=== PATIENT | female | born 1955 | race Caucasian/White ===

== ENCOUNTER 2018-04-28 16:23 | Inpatient (IN) | payer SELFPAY ==
[~2018-04-28] VITALS: Ht 167.6 cm; Wt 79.0 kg
[~2018-04-28 16:23] MED LIST: CATAFLAM50 MG PO; CYMBALTA60 MG PO; Fioricet 325 MG1 TAB PO; HYDROCODONE BIT1 T11 PO; KLOR-CON 1010 ME1 PO; LASIX20 MG PO; TOPAMAX25 MG PO
[2018-04-28 16:24] VITALS: BP 114/48
[2018-04-28] MEDS ORDERED: LIPITOR20 MG PO (16:31)
[2018-04-28] MEDS ORDERED: NEURONTIN300 MG PO ×2 (16:32)
[2018-04-28] MEDS ORDERED: TRAZODONE50 MG PO (16:33)
[2018-04-28] MEDS ORDERED: MELADOX3 MG PO (16:33)
[2018-04-28 16:51] LABS: BASO % 0.2 % (0.0-1.0); EOS % 0.3 % (1.0-4.0); HEMATOCRIT 38.7 % (37.0-47.0); HEMOGLOBIN 13.2 g/dl (12.0-16.0); LYMPH # 1.3 10*3/uL (1.3-4.4); LYMPH % 12.2 % (27.0-41.0); MEAN CELL VOLUME 98.2 fl (81.0-99.0); MEAN CORPUSCULAR HGB 33.5 pg (27.0-31.0); MEAN CORPUSCULAR HGB CONC 34.1 g/dl (33.0-37.0); MEAN PLATELET VOLUME 9.1 fl (9.6-12.3); MONO # 0.8 10*3/uL (0.1-1.0); MONO % 7.1 % (3.0-9.0); NEUT # 8.6 10*3/uL (2.3-7.9); NEUT % 79.8 % (47.0-73.0); PLATELET COUNT AUTOMATED 185 10*3/uL (130-400); RED BLOOD COUNT 3.94 10*6/uL (4.10-5.10); RED CELL DISTRI WIDTH 12.3 % (0-14.5); WHITE BLOOD COUNT 10.7 10*3/uL (4.8-10.8)
[2018-04-28 17:07] LABS: ALBUMIN 3.4 gm/dl (3.1-4.5); ALKALINE PHOSPHATASE 93 U/L (45-117); BUN 10 mg/dl (7-24); CHLORIDE 106 mmol/L (98-107); LIPASE 50 U/L (73-393); POTASSIUM 2.6 mmol/L (3.5-5.1); SGOT/AST 17 IU/L (3-35); SGPT/ALT 27 U/L (12-78); SODIUM 141 mmol/L (136-145); TOTAL PROTEIN 7.2 gm/dL (6.4-8.2)
[2018-04-28 17:23] VITALS: BP 111/67
[2018-04-28 18:20] VITALS: BP 126/60
[2018-04-28 19:07] LABS: BILIRUBIN NEGATIVE (NEGATIVE); BLOOD 3+ (NEGATIVE); CLARITY SL CLOUDY (CLEAR); COLOR YELLOW (YELLOW); GLUCOSE NEGATIVE (NEGATIVE); KETONE TRACE (NEGATIVE); LEUKO ESTERASE 2+ (NEGATIVE); NITRITE POSITIVE (NEGATIVE); PH 6.5 (5.0-9.0); SPECIFIC GRAVITY 1.015 (1.005-1.030)
[2018-04-28 19:25] VITALS: BP 131/64
[2018-04-28 19:28] LABS: WBC TNTC wbc/hpf (0-5)
[2018-04-28 19:29] LABS: BACTERIA 4+
[2018-04-28 20:12] VITALS: BP 115/80
[2018-04-28 20:20] VITALS: BP 127/71
[2018-04-29] VITALS (7 sets, daily range): BP systolic 105–145; BP diastolic 61–76
[2018-04-29 07:19] LABS: BASO % 0.4 % (0.0-1.0); EOS # 0.2 10*3/uL (0.0-0.4); EOS % 1.9 % (1.0-4.0); HEMATOCRIT 35.7 % (37.0-47.0); HEMOGLOBIN 11.9 g/dl (12.0-16.0); LYMPH # 1.3 10*3/uL (1.3-4.4); LYMPH % 13.8 % (27.0-41.0); MEAN CELL VOLUME 99.7 fl (81.0-99.0); MEAN CORPUSCULAR HGB 33.2 pg (27.0-31.0); MEAN CORPUSCULAR HGB CONC 33.3 g/dl (33.0-37.0); MEAN PLATELET VOLUME 9.5 fl (9.6-12.3); MONO # 0.8 10*3/uL (0.1-1.0); MONO % 8.8 % (3.0-9.0); NEUT % 74.8 % (47.0-73.0); PLATELET COUNT AUTOMATED 169 10*3/uL (130-400); RED BLOOD COUNT 3.58 10*6/uL (4.10-5.10); WHITE BLOOD COUNT 9.3 10*3/uL (4.8-10.8)
[2018-04-29 07:39] LABS: BUN 7 mg/dl (7-24); CHLORIDE 108 mmol/L (98-107); CHOLESTEROL 116 mg/dL (<200); CREATININE 0.68 mg/dL (0.55-1.02); POTASSIUM 3.1 mmol/L (3.5-5.1); SODIUM 141 mmol/L (136-145); TRIGLYCERIDES 125 mg/dl (<150); VLDL CHOLESTEROL 25 mg/dL (6-40)
[2018-04-29 07:48] LABS: FREE T4 0.97 ng/dl (0.76-1.46); HDL CHOLESTEROL 27 mg/dl (40-60); LDL CHOLESTEROL 64 mg/dL (9-159); THYROID STIM HORMONE (HS) 0.882 uIU/ml (0.358-4.75)
[2018-04-29 08:26] LABS: VITAMIN D, 25-HYDROXY 10.8 ng/mL (30-100)
[2018-04-30] VITALS: BP 100/48
[2018-04-30 07:22] LABS: HEMATOCRIT 36.8 % (37.0-47.0); HEMOGLOBIN 12.2 g/dl (12.0-16.0); MEAN CELL VOLUME 99.2 fl (81.0-99.0); MEAN CORPUSCULAR HGB 32.9 pg (27.0-31.0); MEAN CORPUSCULAR HGB CONC 33.2 g/dl (33.0-37.0); MEAN PLATELET VOLUME 9.4 fl (9.6-12.3); PLATELET COUNT AUTOMATED 187 10*3/uL (130-400); RED BLOOD COUNT 3.71 10*6/uL (4.10-5.10); RED CELL DISTRI WIDTH 12.1 % (0-14.5); WHITE BLOOD COUNT 6.6 10*3/uL (4.8-10.8)
[2018-04-30 07:41] LABS: BASOPHILS 1 % (0-1); PLATELET SUFFICIENCY NORMAL (NORMAL); TOTAL CELLS COUNTED 100 #CELLS
[2018-04-30 08:00] VITALS: BP 134/78
[2018-04-30 08:03] LABS: BUN 6 mg/dl (7-24); CHLORIDE 107 mmol/L (98-107); CREATININE 0.77 mg/dL (0.55-1.02); PHOSPHOROUS 1.8 mg/dL (2.5-4.9); POTASSIUM 2.9 mmol/L (3.5-5.1); SODIUM 143 mmol/L (136-145)
[2018-04-30 12:00] VITALS: BP 124/82
[2018-04-30] MEDS ORDERED: CIPRO250 MG PO (13:13)
[2018-04-30] MEDS ORDERED: Zofran4 MG SL (13:13)
[2018-04-30] MEDS ORDERED: VITAMIN D-32000 UNIT PO (13:13)
== END 2018-04-30 15:35 | disposition home or self-care (01) | DRG 690 ==
LOC: ED 16:23 → EDHOLD 18:56 → 4E 18:56
PROVIDERS: Internal Medicine; Nurse Practitioner Family
DX: N39.0 Urinary tract infection, site not specified (principal); E44.0 Moderate protein-calorie malnutrition; E83.39 Other disorders of phosphorus metabolism; K56.7 Ileus, unspecified; R07.9 Chest pain, unspecified; G43.909 Migraine, unspecified, not intractable, without status migrainosus; E78.2 Mixed hyperlipidemia; E55.9 Vitamin D deficiency, unspecified; M79.7 Fibromyalgia; E87.6 Hypokalemia; R00.0 Tachycardia, unspecified; Z72.0 Tobacco use; Z71.6 Tobacco abuse counseling; Z79.899 Other long term (current) drug therapy; Z90.49 Acquired absence of other specified parts of digestive tract; Z80.1 Family history of malignant neoplasm of trachea, bronchus and lung; Z80.0 Family history of malignant neoplasm of digestive organs; Z68.28 Body mass index [BMI] 28.0-28.9, adult